=== PATIENT | male | born 1940 | race Caucasian/White ===

== ENCOUNTER 2023-04-13 23:12 | Inpatient (IN) | payer MEDICARE, OTHER, SELFPAY ==
[2023-04-13 23:22] VITALS: BP 207/90; PULSE 63; RESP 16; TEMP 36.4; O2SAT 93; BMI 16.2
[2023-04-13 23:23] VITALS: BP 207/90; O2SAT 94
[2023-04-13 23:30] VITALS: PULSE 63; RESP 17; O2SAT 96
[2023-04-13 23:40] VITALS: PULSE 61; RESP 13; O2SAT 94
[2023-04-13 23:50] VITALS: PULSE 57; RESP 14; O2SAT 95
[2023-04-13 23:57] VITALS: BP 182/79; PULSE 56; RESP 18; O2SAT 97
[2023-04-14] VITALS (19 sets, daily range): BP systolic 143–198; BP diastolic 61–89; PULSE 51–65; RESP 12–24; TEMP 36.6–36.7; O2SAT 90–99; BMI 17.4
--- NOTE | 2023-04-14 00:31 | ECG_ITS ---
[facility] Test Date: 2023-04-13 Pat Name: BETI KRUSE Department: Room: - Gender: Male Take Off Man: : 1940 Requested By: [id number] Order Number: [id number] Reading MD: EVERETTE VALENZUELA Measurements Intervals [place] Rate: 59 P: 90 MN: 148 QRS: 243 QRSD: 86 T: 90 QT: 466 QTc: 466 Interpretive Statements 1100 Sinus rhythm 2420 RSR (QR) in lead V1/V2, consistent with right ventricular conduction delay 2730 Left posterior fascicular block [address] depression 4564 Twave abnormality, possible inferolateral ischemia 7300 Indeterminate axis 9150 abnormal ECG No previous ECG available for comparison Electronically Signed On 04-14-2023 7:02:58 EST by EVERETTE VALENZUELA
--- NOTE | 2023-04-14 00:31 | XR_ITS ---
The [address] [address] Patient Name: BETI KRUSE MRN: [id number] date: 1940 Sex: M Assigned Patient Location: ER Current Patient Location: [place] Accession/Order Number: [id number] Exam Date: 04/14/2023 00:45 Report Date: 04/14/2023 01:12 At the request of: VANGIE MARKER Procedure: XR chest 2V EXAM: XR chest 2V HISTORY: ams COMPARISON: None. TECHNIQUE: 2 views of the chest were obtained. FINDINGS: The cardiac silhouette is normal in size. There are emphysematous changes. Calcified granulomas are seen in the mid left lung. A suspected left nipple shadow is noted. Suspected scarring and bullous changes are noted in the right lung apex. There is no significant pneumothorax or pleural effusion. No acute osseous abnormality is seen. Calcified mediastinal lymph nodes are noted. XR/XR chest 2V IMPRESSION: 1. Emphysematous changes with no acute cardiopulmonary abnormality. Electronically authenticated by: Kirk CERVANTES Date: 04/14/2023 01:12
--- NOTE | 2023-04-14 00:36 | ED_ITS ---
HPI - General Adult General Chief complaint: Headache Stated complaint: WEAKNESS Time Seen by Provider: 04/13/23 23:23 Source: patient and family (daughter) Mode of arrival: Wheelchair Limitations: physical limitation History of Present Illness HPI narrative: This 82-year-old male is brought to the emergency department by his daughter for evaluation of episodes of confusion and hallucinations. The daughter was called by the patient's yesterday stating that the patient was hallucinating and thought that he was seeing 20 people outside of his window getting ready to vote. He was taken to [facility] CT scan, urinalysis, CBC, comprehensive metabolic profile and COVID tests were done. The tests were apparently normal and he was discharged home. The patient's daughter states that while he was in the emergency department he was also hallucinating thinking that he was seeing some strange kind of animals running around on the floor. The patient does not have any known medical history but has not seen any physicians in the past 40 years according to his daughter. He was seen in the emergency department after testing positive for COVID 19 several years ago. The patient has a history of long-standing tobacco use. The patient's daughter states he was smoking at least one pack per day but she does not know how much she is smoking now. He has not had any weight loss according to his daughter but has been increasingly weak and is sleeping in his chair instead of going upstairs to bed. When asked why he is doing that, he replies that he doesnt have to come down the stairs if he hasnt gone up them. He does not have a diagnosis of dementia. The patient denies any chest pain or shortness of breath. He denies any recent falls. He has not been known to have a fever. He has been having intermittent headaches and has a history of glaucoma. He has no focal neurologic symptoms. He denies any nausea or vomiting. He does have a history of colitis and told one of his sons that he has been having some more diarrhea than usual. He denies any abdominal pain at this time. He is awake, alert, oriented to person place and time. He knows his daughter, his date of , his address. Initially upon my examination he was not making sense but after he started talking he was clear and coherent. On the chart from yesterdays ED visit, it was noted that he had a dose of Clonidine and was noted to be hypertensive in the ED and at triage today. The patient's daughter states that he had COVID and it really took a toll on him and he has had some memory issues since that time but nothing like the hallucinations he has been experiencing of late. Related Data Home Medications Medication Instructions Recorded Confirmed ascorbic acid (vitamin C) 500 mg mg PO 04/14/23 capsule zinc sulfate 50 mg zinc (220 mg) 50 mg PO DAILY 04/14/23 04/14/23 tablet Allergies Allergy/AdvReac Type Severity Reaction Status Date / Time No Known Drug Allergies Allergy Verified 04/13/23 23:28 Review of Systems ROS Status of ROS 10 or more systems reviewed and unremarkable except as noted in history and below [facility] Social History Smoking status: Current every day smoker Exam Narrative Exam Narrative: Nurses note and vital signs reviewed and patient is not hypoxic. Blood pressure noted to be elevated at 182/79 General: Thin, non-toxic elderly male, no resp distress, speaking in complete sentences Skin: Warm, dry, no pallor noted. There is no rash noted. Head: Normocephalic, atraumatic Eye: Normal conjunctiva, no drainage, EOMI. PERRL Ears, Nose, Mouth, and Throat: oral mucosa is dry. No oral lesions, no facial droop Cardiovascular: Regular Rate and Rhythm S1S2, no murmurs, rubs or gallops Respiratory: Diffusely diminished breath sounds, no wheezing, rhonchi or rales appreciated Back: non-tender, no CVA tenderness bilaterally to percussion. GI: Normal bowel sounds, no tenderness to palpation, no masses appreciated. No rebound, guarding, or rigidity noted. Musculoskeletal: The patient has no evidence of calf tenderness, no pitting edema, symmetrical pulses noted bilaterally, hypertrophic toe nails with no sign of foot infection Neurological: A&O x4, normal speech, drill press tender strength is intact, negative pronator drift, upper and lower extremity strength and sensation is intact Psychiatric: Cooperative, humerous Constitutional Vital Signs, click to edit/add: Last Vital Signs Temp 97.6 F 04/13/23 23:22 Pulse 54 L 04/14/23 04:36 Resp 15 04/14/23 04:36 BP 173/83 H 04/14/23 04:36 Pulse Ox 95 04/14/23 04:36 O2 Del Method Room Air 04/13/23 23:22 Course Vital Signs Vital signs: Vital Signs Temperature 97.6 F 04/13/23 23:22 Pulse Rate 63 04/13/23 23:22 Respiratory Rate 16 04/13/23 23:22 Blood Pressure 207/90 H 04/13/23 23:22 Pulse Oximetry 93 L 04/13/23 23:22 Oxygen Delivery Method Room Air 04/13/23 23:22 Temperature 97.6 F 04/13/23 23:22 Pulse Rate 54 L 04/14/23 04:36 Respiratory Rate 15 04/14/23 04:36 Blood Pressure 173/83 H 04/14/23 04:36 Pulse Oximetry 95 04/14/23 04:36 Oxygen Delivery Method Room Air 04/13/23 23:22 Medical Decision Making MDM Narrative Medical decision making narrative: 82-year-old male is brought to the emergency department by his daughter for evaluation of altered mental status. The patient has been having episodes of hallucinations. The patient is aware of the hallucinations and states that when he was in the emergency department at [facility] last night there were unusual animals in his room and prior to that thought that he saw about 20 kids outside his bedroom window. The patient does not have any history of any medical issues however he has not seen a doctor or ever been hospitalized. The daughter does state that he did start to have some memory issues after having COVID 19. The patient has a long-standing history of tobacco use. He does not have a family physician. He has not on any chronic medications. At [facility] yesterday he had a CT scan of the brain which was apparently normal., CBC, CMP, UA and COVID 19 testing. He was discharged home and his symptoms continued and he has been increasingly weak. He does have a history of glaucoma. The daughter states at times he is holding his head like he has a headache but he is denying any head pain. He has no photophobia or nuchal rigidity. Upon arrival he was taken to room 6 and evaluated, He was noted to have an elevated blood pressure, He did have some episodes of speech that I could not understand but then was clear and coherent at times. He denies any complaint of pain. His neuro exam was normal.The patient had to use the bathroom and when he tried to get out of bed he was extremely unsteady on his feet and had to be helped back to the bed before he fell. He was medicated with 10 mg IV Labetalol twice for the elevated blood pressure. An EKG done upon arrival shows ST depression but no other acute changes. Routine labs were ordered and are reviewed. He has a normal white count and hemoglobin. He has a normal lactic acid. Troponin is normal. Urinalysis is negative for infection. Blood gas shows a normal pH and a normal PCO2 indicating he is not retaining CO2. CXR shows signs of emphysema but no acute infiltrate. His d-dimer was elevated at 0.88 and CTA of the chest was ordered. CTA of the chest shows diffuse atheromatous plaque of the aorta with paraseptal and ccentral lobular emphysema with large bullae within both lungs moderate scarring within the right upper lung and left lung apex with moderately severe peribronchial thickening consistent with acute or chronic bronchitis with a small mucous within the trachea left mainstem bronchus with mucous plugging of a left lower lobe bronchus. There is no pulmonary embolism or abnormal lymph nodes. There is also diffuse circumferential thickening of the esophageal wall suggestive of esophagitis or sequelae of chronic GE reflux. The patient has been continually monitored in the emergency Department has not had any ectopy or arrhythmias on the monitor. He remains awake, alert, conversive. He does admit that he coughs a lot and has productive phlegm. I will speak to the hospitalist about admitting him for his generalized weakness, uncontrolled hypertension, episodes of altered mental status/confusion/hallucinations and his chronic pulmonary issues. The patient is reluctantly agreeable to hospitalization at this time. He is aware that he has been having episodes of confusion and generalized weakness and wishes to get stronger so he can go fishing again Case discussed with Dr Santiago and he is accepted for admission Medical Records Medical records narrative: The [address] [address] XRay Report Signed Patient: BETI KRUSE MR#: [id number] : 1940 Acct:[id number] Age/Sex: 82 / M ADM Date: 04/13/23 Loc: ER Attending Dr: Ordering Physician: Deborah Camacho Date of Service: 04/14/23 Procedure(s): XR chest 2V Accession Number(s): [id number] cc: Deborah Camacho; Physician,Non-Staff M.D.~ [facility] [place] [id number] Patient Name: BETI KRUSE MRN: [id number] date: 1940 Sex: M Assigned Patient Location: ER Current Patient Location: ER Accession/Order Number: [id number] Exam Date: 04/14/2023 00:45 Report Date: 04/14/2023 01:12 At the request of: DEBORAH MARKER Procedure: XR chest 2V EXAM: XR chest 2V HISTORY: ams COMPARISON: None. TECHNIQUE: 2 views of the chest were obtained. FINDINGS: The cardiac silhouette is normal in size. There are emphysematous changes. Calcified granulomas are seen in the mid left lung. A suspected left nipple shadow is noted. Suspected scarring and bullous changes are noted in the right lung apex. There is no significant pneumothorax or pleural effusion. No acute osseous abnormality is seen. Calcified mediastinal lymph nodes are noted. XR/XR chest 2V IMPRESSION: 1. Emphysematous changes with no acute cardiopulmonary abnormality. Electronically authenticated by: Kirk CERVANTES Date: 04/14/2023 01:12 [place] [address] CT Scan Report Signed Patient: BETI KRUSE MR#: [id number] : 1940 Acct:[id number] Age/Sex: 82 / M ADM Date: 04/13/23 Loc: ER Attending Dr: Ordering Physician: Deborah Camacho Date of Service: 04/14/23 Procedure(s): CT angio chest Accession Number(s): [id number] cc: Physician,Non-Staff M.D.~ The [address] [id number] Patient Name: BETI KRUSE MRN: [id number] date: 1940 Sex: M Assigned Patient Location: ER Current Patient Location: ER Accession/Order Number: [id number] Exam Date: 04/14/2023 03:36 Report Date: 04/14/2023 04:50 At the request of: DEBORAH MARKER Procedure: CT angio chest EXAM: CT angio chest HISTORY: Elevated d-dimer; technologist notes state headache, increasing weakness and hallucinations. COMPARISON: None. TECHNIQUE: Routine CTA chest with intravenous contrast. FINDINGS: There is contrast within the pulmonary arteries. There is no pulmonary embolus. The heart size is within normal limits. There is mild calcified and noncalcified atheromatous plaque along the thoracic aorta and severe calcified and noncalcified plaque along the abdominal aorta. Paraseptal and centrilobular emphysema with large bulla within both lung apices. There is moderate scarring within the right upper lung zone and at the left lung apex. There is moderately severe peribronchial thickening consistent with acute and/or chronic bronchitis. There is a small amount of mucus within the trachea and left mainstem bronchus. There is mucus plugging of a left lower lobe bronchus. There is a reticular nodular interstitial pattern within the left lower lobe suggesting aspiration or a bronchiolitis. Mild atelectasis lingular segment left upper lobe. There is a 0.3 cm noncalcified nodule anterior right mid chest (series 4 image 60). There is a 0.4 cm noncalcified nodule lateral right mid chest (series 4 image 57). There is a 0.3 cm nodule lateral left mid chest which could represent a granuloma (series 4 image 51). There are several small calcified granuloma adjacent to this. There are no pathologically enlarged axillary, mediastinal or hilar lymph nodes. Mild diffuse circumferential thickening of the esophageal wall suggesting an esophagitis or sequelae of chronic gastroesophageal reflux. The thyroid gland is unremarkable. There are calcified granuloma scattered within the spleen. The bony structures are osteopenic. There is mild kyphosis of the thoracic spine. CT/CT angio chest IMPRESSION: There is no pulmonary embolus. Paraseptal and centrilobular emphysema with large bulla within both lung apices. There is moderate scarring within the right upper lung zone and at the left lung apex. There is moderately severe peribronchial thickening consistent with acute and/or chronic bronchitis. There is a small amount of mucus within the trachea and left mainstem bronchus. There is mucus plugging of a left lower lobe bronchus. There is a reticular nodular interstitial pattern within the left lower lobe suggesting aspiration or a bronchiolitis. A CT examination of the chest following appropriate medical treatment is recommended to confirm complete resolution. There are a couple nodules within the chest measuring 0.3 cm on the right and 0.4 cm on the left. There are no pathologically enlarged lymph nodes. Mild diffuse circumferential thickening of the esophageal wall suggesting an esophagitis or sequelae of chronic gastroesophageal reflux. Electronically authenticated by: ANA LUISA CHENG Date: 04/14/2023 04:50 Lab Data Lab results reviewed: Yes I reviewed the patient's lab results Labs: Lab Results 04/14/23 04/14/23 04/14/23 Range/Units 00:00 00:34 00:40 WBC 9.2 (4.0-11.0) 10^3/uL RBC 5.42 (4.70-6.10) 10^6/uL Hgb 16.5 (14.0-18.0) g/dL Hct 49.4 (42.0-54.0) % MCV 91.1 (80.0-94.0) fL MCH 30.4 (25.9-34.0) pg MCHC 33.4 (29.9-35.2) g/dL RDW 13.5 (11.0-15.0) % Plt Count 221 (150-450) 10^3/uL MPV 10.8 (9.5-13.5) fL Neut % (Auto) 73.2 (43.0-75.0) % Lymph % (Auto) 16.2 L (20.5-60.0) % Monroe % (Auto) 7.6 (1.7-12.0) % Eos % (Auto) 1.5 (0.9-7.0) % Baso % (Auto) 0.7 (0.2-2.0) % Neut # (Auto) 6.8 H (1.4-6.5) 10^3/uL Lymph # (Auto) 1.5 (1.2-3.8) 10^3/uL [place] # (Auto) 0.7 (0.3-0.8) 10^3/uL Eos # (Auto) 0.1 (0.0-0.7) 10^3/uL Baso # (Auto) 0.1 (0.0-0.1) 10^3/uL Abs Immat Gran (auto) 0.07 H (0.00-0.03) 10^3/uL Imm/Tot Granulo (auto) 0.8 H (0.0-0.5) % D-Dimer 0.88 H* (<=0.59) mg/L FEU Puncture Site Lr ABG pH 7.366 (7.350-7.450) ABG pCO2 36.3 (35.0-45.0) mmHg ABG pO2 72.2 L (80.0-100.0) mmHg ABG HCO3 20.8 L (22.0-26.0) mmol/L ABG O2 Saturation 94.4 % ABG Base Excess -4.6 L (-2.0-2.0) mmol/L Ron Test Positive (POSITIVE) Sodium 136 (136-145) mmol/L Potassium 4.1 (3.5-5.1) mmol/L Chloride 101 (98-107) mmol/L Carbon Dioxide 23.6 (21.0-32.0) mmol/L Anion Gap 15.5 BUN 36.0 H (7.0-18.0) mg/dL Creatinine 1.21 (0.70-1.30) mg/dL Est GFR ( Amer) >60 (>=60) Est GFR (Non-Af Amer) 58 L (>=60) BUN/Creatinine Ratio 29.8 Glucose 74 (74-106) mg/dL Lactate 1.2 (0.4-2.0) mmol/L Calcium 9.2 (8.5-10.1) mg/dL Total Bilirubin 0.9 (0.2-1.0) mg/dL AST 18 (15-37) U/L ALT 7 L (16-63) U/L Alkaline Phosphatase 94 (46-116) U/L Ammonia 19 (11-32) umol/L Troponin I High Sens 20.7 (4.0-76.1) pg/mL Total Protein 7.0 (6.4-8.2) g/dL Albumin 3.9 (3.4-5.0) g/dL Globulin 3.1 g/dL Albumin/Globulin Ratio 1.3 Urine Color (YELLOW) Urine Clarity (CLEAR) Urine pH (5.0-9.0) Ur Specific [place] (1.005-1.025) Urine Protein (NEG/TRACE) mg/dL Urine Glucose (UA) (NEGATIVE) mg/dL Urine Ketones (NEGATIVE) mg/dL Urine Occult Blood (NEGATIVE) Urine Nitrite (NEGATIVE) Urine Bilirubin (NEGATIVE) Urine Urobilinogen (0.2-1.0) EU/dL Ur Leukocyte Esterase (NEGATIVE) Urine RBC (0-2) #/HPF Urine WBC (NONE SEEN) #/HPF Ur Squamous Epith Cells (NONE/RARE) #/LPF Urine Crystals (None Seen) #/HPF Urine Bacteria (NONE SEEN) #/HPF Urine Casts (NONE SEEN) #/LPF Urine Mucus (NONE SEEN) Ur Culture Indicated? 04/14/23 Range/Units 02:15 WBC (4.0-11.0) 10^3/uL RBC (4.70-6.10) 10^6/uL Hgb (14.0-18.0) g/dL Hct (42.0-54.0) % MCV (80.0-94.0) fL MCH (25.9-34.0) pg MCHC (29.9-35.2) g/dL RDW (11.0-15.0) % Plt Count (150-450) 10^3/uL MPV (9.5-13.5) fL Neut % (Auto) (43.0-75.0) % Lymph % (Auto) (20.5-60.0) % [place] % (Auto) (1.7-12.0) % Eos % (Auto) (0.9-7.0) % Baso % (Auto) (0.2-2.0) % Neut # (Auto) (1.4-6.5) 10^3/uL Lymph # (Auto) (1.2-3.8) 10^3/uL [place] # (Auto) (0.3-0.8) 10^3/uL Eos # (Auto) (0.0-0.7) 10^3/uL Baso # (Auto) (0.0-0.1) 10^3/uL Abs Immat Gran (auto) (0.00-0.03) 10^3/uL Imm/Tot Granulo (auto) (0.0-0.5) % D-Dimer (<=0.59) mg/L FEU Puncture Site ABG pH (7.350-7.450) ABG pCO2 (35.0-45.0) mmHg ABG pO2 (80.0-100.0) mmHg ABG HCO3 (22.0-26.0) mmol/L ABG O2 Saturation % ABG Base Excess (-2.0-2.0) mmol/L Ron Test (POSITIVE) Sodium (136-145) mmol/L Potassium (3.5-5.1) mmol/L Chloride (98-107) mmol/L Carbon Dioxide (21.0-32.0) mmol/L Anion Gap BUN (7.0-18.0) mg/dL Creatinine (0.70-1.30) mg/dL Est GFR ( Amer) (>=60) Est GFR (Non-Af Amer) (>=60) BUN/Creatinine Ratio Glucose (74-106) mg/dL Lactate (0.4-2.0) mmol/L Calcium (8.5-10.1) mg/dL Total Bilirubin (0.2-1.0) mg/dL AST (15-37) U/L ALT (16-63) U/L Alkaline Phosphatase (46-116) U/L Ammonia (11-32) umol/L Troponin I High Sens (4.0-76.1) pg/mL Total Protein (6.4-8.2) g/dL Albumin (3.4-5.0) g/dL Globulin g/dL Albumin/Globulin Ratio Urine Color Yellow (YELLOW) Urine Clarity Clear (CLEAR) Urine pH 5.5 (5.0-9.0) Ur Specific [place] >=1.030 A (1.005-1.025) Urine Protein Trace (NEG/TRACE) mg/dL Urine Glucose (UA) Negative (NEGATIVE) mg/dL Urine Ketones >=80 A (NEGATIVE) mg/dL Urine Occult Blood Negative (NEGATIVE) Urine Nitrite Negative (NEGATIVE) Urine Bilirubin Negative (NEGATIVE) Urine Urobilinogen 0.2 (0.2-1.0) EU/dL Ur Leukocyte Esterase Negative (NEGATIVE) Urine RBC 0-2 (0-2) #/HPF Urine WBC None seen (NONE SEEN) #/HPF Ur Squamous Epith Cells Rare (NONE/RARE) #/LPF Urine Crystals None seen (None Seen) #/HPF Urine Bacteria Trace A (NONE SEEN) #/HPF Urine Casts None seen (NONE SEEN) #/LPF Urine Mucus None seen (NONE SEEN) Ur Culture Indicated? No ECG Data Attestation: I personally reviewed and interpreted this ECG as follows: (Sinus rhythm at 59 beats for minute, ST depressions in leads 23 aVF 3 before V5 V6, left anterior hemiblock, indeterminate axis, no acute ST segment elevation) Discharge Plan Discharge Chief Complaint: Headache Clinical Impression: Hypertension, uncontrolled, Generalized weakness, Hallucinations, visual, Altered mental status, COPD (chronic obstructive pulmonary disease) Patient Disposition: Admitted as Observation Time of Disposition Decision: 06:15
[2023-04-14 00:42] LABS: Basophils Absolute Auto 0.1 10^3/uL (0.0-0.1); Basophils Percent Auto 0.7 % (0.2-2.0); Eosinophils Absolute Auto 0.1 10^3/uL (0.0-0.7); Eosinophils Percent Auto 1.5 % (0.9-7.0); Hematocrit 49.4 % (42.0-54.0); Hemoglobin 16.5 g/dL (14.0-18.0); Immature Granulocytes Abs Auto 0.07 10^3/uL (0.00-0.03); Immature Granulocytes Pct Auto 0.8 % (0.0-0.5); Lymphocytes Absolute Auto 1.5 10^3/uL (1.2-3.8); Lymphocytes Percent Auto 16.2 % (20.5-60.0); Mean Corpuscular HGB Conc 33.4 g/dL (29.9-35.2); Mean Corpuscular Hemoglobin 30.4 pg (25.9-34.0); Mean Corpuscular Volume 91.1 fL (80.0-94.0); Mean Platelet Volume 10.8 fL (9.5-13.5); Monocytes Absolute Auto 0.7 10^3/uL (0.3-0.8); Monocytes Percent Auto 7.6 % (1.7-12.0); Neutrophils Absolute Auto 6.8 10^3/uL (1.4-6.5); Neutrophils Percent Auto 73.2 % (43.0-75.0); Platelet Count 221 10^3/uL (150-450); Red Blood Count 5.42 10^6/uL (4.70-6.10); Red Cell Distribution Width 13.5 % (11.0-15.0); White Blood Count 9.2 10^3/uL (4.0-11.0)
[2023-04-14 00:43] LABS: ABG PCO2 36.3 mmHg (35.0-45.0); Base Excess ABG -4.6 mmol/L (-2.0-2.0); HCO3 ABG 20.8 mmol/L (22.0-26.0); PO2 ABG 72.2 mmHg (80.0-100.0); pH ABG 7.366 (7.350-7.450)
[2023-04-14 00:44] LABS: Allen Test POSITIVE (POSITIVE); O2 Mode ROOM AIR; Oxygen Saturation ABG 94.4 %; Puncture Site LR
[2023-04-14 01:01] LABS: Lactate/Lactic Acid 1.2 mmol/L (0.4-2.0)
[2023-04-14 01:07] LABS: Ammonia 19 umol/L (11-32)
[2023-04-14 01:45] LABS: Alanine Aminotransferase 7 U/L (16-63); Albumin Globulin Ratio 1.3; Albumin Level 3.9 g/dL (3.4-5.0); Alkaline Phosphatase 94 U/L (46-116); Anion Gap 15.5; Aspartate Amino Transferase 18 U/L (15-37); BUN Creatinine Ratio 29.8; Bilirubin Total 0.9 mg/dL (0.2-1.0); Calcium 9.2 mg/dL (8.5-10.1); Carbon Dioxide 23.6 mmol/L (21.0-32.0); Chloride 101 mmol/L (98-107); Estimated GFR (African America >60 (>=60); Estimated GFR (Non-African Ame 58 (>=60); Globulin 3.1 g/dL; Glucose 74 mg/dL (74-106); Potassium 4.1 mmol/L (3.5-5.1); Sodium 136 mmol/L (136-145)
[2023-04-14] MEDS: LABETALOL HCL 20 MG/4 ML SYRINGE 10 MG IVP ×2 (02:00→03:06)
[2023-04-14 02:25] LABS: Bilirubin Urine NEGATIVE (NEGATIVE); Blood Urine NEGATIVE (NEGATIVE); Clarity Urine CLEAR (CLEAR); Color Urine YELLOW (YELLOW); Glucose Urine UA NEGATIVE (NEGATIVE); Ketones Urine >=80 mg/dL (NEGATIVE); Leukocyte Esterase Urine NEGATIVE (NEGATIVE); Nitrite Urine NEGATIVE (NEGATIVE); Protein Urine TRACE mg/dL (NEG/TRACE); Specific Gravity Urine >=1.030 (1.005-1.025); Urobilinogen Urine 0.2 EU/dL (0.2-1.0); pH Urine 5.5 (5.0-9.0)
[2023-04-14 02:27] LABS: Bacteria Urine TRACE #/HPF (NONE SEEN); Cast Seen? NONE SEEN #/LPF (NONE SEEN); Crystals Seen? None Seen #/HPF (None Seen); Mucus Urine NONE SEEN (NONE SEEN); RBC Urine 0-2 #/HPF (0-2); Squamous Epithelial Cell Urine RARE #/LPF (NONE/RARE); Urine Culture Indicated NO; WBC Urine NONE SEEN #/HPF (NONE SEEN)
[2023-04-14 02:46] LABS: Troponin I High Sensitivity 20.7 pg/mL (4.0-76.1)
[2023-04-14] MEDS: 0.9 % SODIUM CHLORIDE 1,000 ML 1000 ML IV (02:50)
[2023-04-14 02:51] LABS: D Dimer 0.88 mg/L FEU (<=0.59)
--- NOTE | 2023-04-14 02:52 | CT_ITS ---
The [address] [address] Patient Name: BETI KRUSE MRN: [id number] date: 1940 Sex: M Assigned Patient Location: ER Current Patient Location: [place] Accession/Order Number: [id number] Exam Date: 04/14/2023 03:36 Report Date: 04/14/2023 04:50 At the request of: VANGIE MARKER Procedure: CT angio chest EXAM: CT angio chest HISTORY: Elevated d-dimer; technologist notes state headache, increasing weakness and hallucinations. COMPARISON: None. TECHNIQUE: Routine CTA chest with intravenous contrast. FINDINGS: There is contrast within the pulmonary arteries. There is no pulmonary embolus. The heart size is within normal limits. There is mild calcified and noncalcified atheromatous plaque along the thoracic aorta and severe calcified and noncalcified plaque along the abdominal aorta. Paraseptal and centrilobular emphysema with large bulla within both lung apices. There is moderate scarring within the right upper lung zone and at the left lung apex. There is moderately severe peribronchial thickening consistent with acute and/or chronic bronchitis. There is a small amount of mucus within the trachea and left mainstem bronchus. There is mucus plugging of a left lower lobe bronchus. There is a reticular nodular interstitial pattern within the left lower lobe suggesting aspiration or a bronchiolitis. Mild atelectasis lingular segment left upper lobe. There is a 0.3 cm noncalcified nodule anterior right mid chest (series 4 image 60). There is a 0.4 cm noncalcified nodule lateral right mid chest (series 4 image 57). There is a 0.3 cm nodule lateral left mid chest which could represent a granuloma (series 4 image 51). There are several small calcified granuloma adjacent to this. There are no pathologically enlarged axillary, mediastinal or hilar lymph nodes. Mild diffuse circumferential thickening of the esophageal wall suggesting an esophagitis or sequelae of chronic gastroesophageal reflux. The thyroid gland is unremarkable. There are calcified granuloma scattered within the spleen. The bony structures are osteopenic. There is mild kyphosis of the thoracic spine. CT/CT angio chest IMPRESSION: There is no pulmonary embolus. Paraseptal and centrilobular emphysema with large bulla within both lung apices. There is moderate scarring within the right upper lung zone and at the left lung apex. There is moderately severe peribronchial thickening consistent with acute and/or chronic bronchitis. There is a small amount of mucus within the trachea and left mainstem bronchus. There is mucus plugging of a left lower lobe bronchus. There is a reticular nodular interstitial pattern within the left lower lobe suggesting aspiration or a bronchiolitis. A CT examination of the chest following appropriate medical treatment is recommended to confirm complete resolution. There are a couple nodules within the chest measuring 0.3 cm on the right and 0.4 cm on the left. There are no pathologically enlarged lymph nodes. Mild diffuse circumferential thickening of the esophageal wall suggesting an esophagitis or sequelae of chronic gastroesophageal reflux. Electronically authenticated by: ANA LUISA CHENG Date: 04/14/2023 04:50
--- NOTE | 2023-04-14 06:11 | PC.NURSE ---
Pt resting comforrtably. MD consulting hospitalists regarding admission.
[2023-04-14] MEDS: LACTATED RINGER'S SOLUTION 1,000 ML 100 ML IV ×2 (07:54→21:46)
--- NOTE | 2023-04-14 09:12 | CM.NOTE ---
PT and OT to evaluate pt today, Case Management will follow for any home needs.
[2023-04-14] MEDS: CEFTRIAXONE 1,000 MG in 0.9 % SODIUM CHLORIDE 50 ML 100 MG IV (09:34)
[2023-04-14] MEDS: ENOXAPARIN SODIUM 40 MG/0.4 ML SYRINGE SUBQ (09:38)
[2023-04-14] MEDS: IPRATROPIUM/ALBUTEROL SULFATE 3 ML AMPUL.NEB IH ×3 (10:34→23:49)
--- NOTE | 2023-04-14 11:10 | CM.NOTE ---
Medicare Outpatient Observation Notice discussed with pt, pt verbalizes understanding but refuses to sign. Pt states he has the [employer] halfway benefits and insurance and was told to not sign anything regarding Medicare or insurance.
--- NOTE | 2023-04-14 11:34 | CM.NOTE ---
Spoke with pt's daughter on telephone for pt's baseline. Pt does live at home with and is independent. No home services. Pt's confusion has just started in the las couple weeks, pt was seeing Animals and cars in home that were not really present. Pt does not have a family physician and has not seen a doctor for years. Pt does not take any medications but uses eye drops. This is his first time being hospitalized. Daughter does request attempting to get pt to agree to HH at discharge and she will be in to talk with him. Pt does refuse at this time any home services. Pt states he does not like people in his home.
--- NOTE | 2023-04-14 12:46 | CM.NOTE ---
Discussed with son and pt regarding HH or nurse to come in for home evaluation. Pt not in agreement at this time. Son asking questions of concern regarding new onset of confusion. Spoke with Dr. Santiago and he will go in and talk with pt's son. Let son know that Dr. Santiago would be in shortly to talk with him to discuss plan of care.
--- NOTE | 2023-04-14 14:12 | CM.NOTE ---
Spoke with son again regarding plan of care with pt. Son states he was able to speak with Dr. Santiago and pt is getting MRI. Explained to son if anything would change with pt's thoughts regarding HH to please reach out to Case Management.
--- NOTE | 2023-04-14 14:33 | MR_ITS ---
The [address] [address] Patient Name: BETI KRUSE MRN: [id number] date: 1940 Sex: M Assigned Patient Location: [place] Current Patient Location: [place] Accession/Order Number: [id number] Exam Date: 04/14/2023 15:00 Report Date: 04/14/2023 16:04 At the request of: SHAIKH JULIANNE Procedure: MR head/brain wo con EXAM: MRI of the brain without IV contrast. REASON FOR EXAM: Confusion/Change in mental status COMPARISON: CT scan from earlier today FINDINGS: Patient motion artifact degrades image quality and reduces sensitivity of the exam. No intracranial masses. No abnormal restricted diffusion or evidence of evolving infarct. No evidence of intracranial hemorrhage. No hydrocephalus. Mild generalized cerebral and cerebellar volume loss. Mild small vessel gliosis. Paranasal sinuses and mastoid air cells are clear. Remainder unremarkable. MR/MR head/brain wo con IMPRESSION: No acute intracranial abnormalities within the limitations of the motion artifact. Electronically authenticated by: TANYA ESPINOZA Date: 04/14/2023 16:04
[2023-04-14] MEDS: HYDROCHLOROTHIAZIDE 25 MG TABLET PO (15:10)
[2023-04-14] MEDS: ACETAMINOPHEN 325 MG TABLET 650 MG PO (15:12)
[2023-04-14] MEDS: LORAZEPAM 2 MG/ML 1 ML VIAL IV (15:12)
--- NOTE | 2023-04-14 18:47 | PM.HP ---
H&P: HPI History of Present Illness Chief complaint: Confusion/change in mental status Narrative: 82 y o male with no known medical problems, lives with his and at baseline, independent in his ADLs, drives and does not use any assistive device when walking was in his usual state of health when about a week or so, he started to intermittently complaint of headache. Around the same time, he was also noted to have productive sputum, HUERTA and generalized weakness. Denies fever, chills, nausea, vomiting, abdominal pain, urinary symptoms. 2-3 days, family noted that patient had fluctuating confusion with periods of normal mentation alternating with extreme anxiety/agitation and visual hallucinations. No prior hx of same. He had ED visit and w/u at OSH that was unremarkable and he was discharged home for outpatient f/u. His symptoms worsened since hospital discharge and he was brought over to ED by his daughter. He was noted to have accelerated HTN with SBP in 200 that responded well to IV medications. CTH - no sig intracranial pathology. His w/u is unremarkable with no acute metabolic/electrolyte abnormality noted except for possible aspiration PNA which given his resp symptoms seemed logical and he was started on IV rocephin along with inhaled bronchodilators for it. He reports feeling better overall compared to when he arrived and that he feels like he is breathing better. However, he still seems confused and intermittently was anxious, agitated and then on occasion reported children playing in a car in a hospital bed. His gait was noted to be unsteady. Other than that - no localizing neurological signs or symptoms noted on interview or exam. There is no prior hx of dementia but daughter mentioned that he has been forgetful lately but nothing out of the ordinary or bothersome was noted in his memory and behavior prior to this acute change. Review of Systems ROS Status of ROS 10 or more systems reviewed and unremarkable except as noted in history and below [facility] Medical History Colitis ?K52.9 - Noninfective gastroenteritis and colitis, unspecified (ICD-10) Glaucoma ?H40.9 - Unspecified glaucoma (ICD-10) Family History Grandfather Family history of CHF (congestive heart failure) Family history of hypertension Family history of myocardial infarction Brother Family history of diabetes mellitus Mother Family history of hypertension Father Family history of myocardial infarction Social History Within the past year, how often did you have a drink containing alcohol: never Within the past year, how often did you have six or more drinks on one occasion: never Score interpretation: A score less than 4 is consistent with normal alcohol consumption. Smoking status: Current every day smoker Highest level of school completed/degree received: high school graduate Are you now , , , , never or living with a partner: In a typical week, how many times do you talk on the telephone with family, friends, or neighbors: twice per week How often do you get together with friends or relatives: twice per week Little interest or pleasure in doing things: not at all Feeling down, depressed, or hopeless: not at all Feel stressed/tense/nervous/anxious/difficulty sleeping: not at all Do you think of yourself as: straight/heterosexual Gender Identity: male Meds Home Medications and Allergies Home Medications Medication Instructions Recorded Confirmed Type ascorbic acid (vitamin C) 500 mg 500 mg PO QDAY 04/14/23 04/14/23 History capsule zinc sulfate 50 mg zinc (220 mg) 50 mg PO DAILY 04/14/23 04/14/23 History tablet Allergies Allergy/AdvReac Type Severity Reaction Status Date / Time No Known Drug Allergies Allergy Verified 04/13/23 23:28 Exam Constitutional Vital Signs, click to edit/add: Last Vital Signs Temp 98 F 04/14/23 15:12 Pulse 51 L 04/14/23 16:32 Resp 24 04/14/23 16:32 BP 173/67 H 04/14/23 15:10 Pulse Ox 95 04/14/23 16:32 O2 Del Method Room Air 04/14/23 16:32 Documenting provider has reviewed patient's vital signs: yes Common normals: no apparent distress and oriented x3 General appearance: cooperative HENMT Common normals: normocephalic and head/scalp atraumatic Head and scalp: normocephalic and atraumatic Eye Common normals: conjunctivae normal and no scleral icterus Conjunctiva: conjunctiva(e) normal Respiratory Common normals: normal respiratory effort Effort & inspection: able to speak in complete sentences Auscultation: rhonchi Cardio Common normals: regular rate, S1 normal heart sound and S2 normal heart sound Rate: regular rate Heart sounds: S1 normal and S2 normal GI Common normals: Normal to inspection, nondistended, normoactive bowel sounds present, soft to palpation, non-tender and no hepatosplenomegaly Palpation: soft and no hepatosplenomegaly Extremity General: edema (dilated veins, LE edema localized around ankles. ) Neuro Common normals: oriented x3, moves all extremities and no focal motor deficits Speech: speech normal Gait (neuro): normal gait Psych Common normals: speech normal Appearance: grossly normal Attitude: other (anxious) Speech: normal speech Mood and affect: anxious Thought process: confused Thought content: hallucination(s) Insight: limited Judgement: limited Results Labs Labs: Short CBC 04/14/23 Range/Units 00:34 WBC 9.2 (4.0-11.0) 10^3/uL Hgb 16.5 (14.0-18.0) g/dL Hct 49.4 (42.0-54.0) % Plt Count 221 (150-450) 10^3/uL BMP 04/14/23 00:34 Sodium 136 Potassium 4.1 Chloride 101 Carbon Dioxide 23.6 BUN 36.0 H Creatinine 1.21 Glucose 74 Calcium 9.2 Liver Function 04/14/23 Range/Units 00:34 Total Bilirubin 0.9 (0.2-1.0) mg/dL AST 18 (15-37) U/L ALT 7 L (16-63) U/L Alkaline Phosphatase 94 (46-116) U/L Albumin 3.9 (3.4-5.0) g/dL Urine 04/14/23 Range/Units 02:15 Urine Color Yellow (YELLOW) Urine Clarity Clear (CLEAR) Urine pH 5.5 (5.0-9.0) Ur Specific [place] >=1.030 A (1.005-1.025) Urine Protein Trace (NEG/TRACE) mg/dL Urine Glucose (UA) Negative (NEGATIVE) mg/dL ABG ABG results: 04/14/23 00:40 ABG pH 7.366 ABG pCO2 36.3 ABG pO2 72.2 L ABG HCO3 20.8 L ABG O2 Saturation 94.4 ABG Base Excess -4.6 L Assessment and Plan Assessment and Plan (1) Hypertensive emergency without congestive heart failure: Assessment and Plan: HTN emergency - presented with poorly controlled HTN. SBP > 200, DBP > 100. Associated with headache and change in mental status. Responded well to IV meds but creeping up slowly during the day. IV hydralazine as needed Start on Losartan/HCTZ. Monitor BP. CTH - no acute patholgoy. Due to persistent symptoms of confusion/delirium/altered mental status - order an MRI to r/o mass/space occupying lesion/CVA. Normal MRI. No acute pathology. (2) Delirium due to medical condition without behavioral disturbance: Assessment and Plan: Altered mental status, with fluctuating sensorium. Confused, anxious with hallucinations and then sometimes, he is at his baseline mental status. No acute pathology noted on MRI. No localizing signs or symptoms. No neck regidity, neck pain. Suspect this could be due to PNA/accelerated HTN. Monitor closely. Added xanax and seroquel to help with anxiety/agitation. (3) Altered mental status: Assessment and Plan: Altered mental status, with fluctuating sensorium. Confused, anxious with hallucinations and then sometimes, he is at his baseline mental status. No acute pathology noted on MRI. No localizing signs or symptoms. No neck regidity, neck pain. Suspect this could be due to PNA/accelerated HTN. Monitor closely. Added ativan and seroquel to help with anxiety/agitation. Qualifiers: Altered mental status type: delirium Qualified Code(s): R41.0 - Disorientation, unspecified (4) Bacterial pneumonia: Assessment and Plan: Cough, with SOB, abnormal lung auscultation along with possible infilitrate on CTA. Treating for CAP. On IV rocephin. Suspect underlying COPD. Will need outpatient PFTs. Duonebs as needed, guaifenesin for mucus and cough. (5) Generalized weakness: Assessment and Plan: Improved overnight. PT/OT eval. Ambulating w.o any help but unsteady gait. (6) Smoker: Assessment and Plan: Nicotine patch ordered. Discussed smoking cessation briefly. Plan Patient changed to inpatient as anticipate to stay for 3 days for his current illness. Needs close monitoring of neurological status and if no improvement, might require Neurology consult.
[2023-04-14] MEDS: NICOTINE 21 MG PATCH TD (21:46)
[2023-04-14] MEDS: QUETIAPINE FUMARATE 25 MG TABLET PO (21:47)
[2023-04-14] MEDS: LOSARTAN POTASSIUM 50 MG TABLET 100 MG PO (21:47)
[2023-04-15] VITALS (12 sets, daily range): BP systolic 145–177; BP diastolic 62–71; PULSE 52–96; RESP 12–20; TEMP 36.6–36.9; O2SAT 93–99
[2023-04-15] MEDS: IPRATROPIUM/ALBUTEROL SULFATE 3 ML AMPUL.NEB IH ×4 (04:27→22:34)
[2023-04-15 05:56] LABS: Basophils Percent Auto 0.4 % (0.2-2.0); Eosinophils Absolute Auto 0.1 10^3/uL (0.0-0.7); Hematocrit 35.9 % (42.0-54.0); Hemoglobin 11.9 g/dL (14.0-18.0); Immature Granulocytes Abs Auto 0.04 10^3/uL (0.00-0.03); Immature Granulocytes Pct Auto 0.4 % (0.0-0.5); Lymphocytes Absolute Auto 1.1 10^3/uL (1.2-3.8); Lymphocytes Percent Auto 11.9 % (20.5-60.0); Mean Corpuscular HGB Conc 33.1 g/dL (29.9-35.2); Mean Corpuscular Hemoglobin 29.7 pg (25.9-34.0); Mean Corpuscular Volume 89.5 fL (80.0-94.0); Mean Platelet Volume 9.8 fL (9.5-13.5); Monocytes Absolute Auto 0.9 10^3/uL (0.3-0.8); Monocytes Percent Auto 10.3 % (1.7-12.0); Neutrophils Absolute Auto 6.8 10^3/uL (1.4-6.5); Platelet Count 187 10^3/uL (150-450); Red Blood Count 4.01 10^6/uL (4.70-6.10); Red Cell Distribution Width 13.5 % (11.0-15.0); White Blood Count 8.9 10^3/uL (4.0-11.0)
[2023-04-15 06:16] LABS: Alanine Aminotransferase <6 U/L (16-63); Albumin Globulin Ratio 1.1; Albumin Level 2.6 g/dL (3.4-5.0); Alkaline Phosphatase 61 U/L (46-116); Anion Gap 9.6; Aspartate Amino Transferase 16 U/L (15-37); Bilirubin Total 0.4 mg/dL (0.2-1.0); Calcium 8.3 mg/dL (8.5-10.1); Carbon Dioxide 25.8 mmol/L (21.0-32.0); Chloride 106 mmol/L (98-107); Estimated GFR (African America >60 (>=60); Estimated GFR (Non-African Ame 55 (>=60); Globulin 2.3 g/dL; Glucose 99 mg/dL (74-106); Potassium 3.4 mmol/L (3.5-5.1); Sodium 138 mmol/L (136-145); Total Protein 4.9 g/dL (6.4-8.2)
[2023-04-15] MEDS: LACTATED RINGER'S SOLUTION 1,000 ML 100 ML IV ×2 (07:29→17:20)
[2023-04-15] MEDS: CEFTRIAXONE 1,000 MG in 0.9 % SODIUM CHLORIDE 50 ML 100 MG IV (08:39)
[2023-04-15] MEDS: ENOXAPARIN SODIUM 40 MG/0.4 ML SYRINGE SUBQ (08:39)
[2023-04-15] MEDS: DOCUSATE SODIUM 100 MG CAPSULE PO (08:40)
[2023-04-15] MEDS: POTASSIUM CHLORIDE 10 MEQ ER TABLET 40 MEQ PO (08:40)
[2023-04-15] MEDS: LOSARTAN POTASSIUM 50 MG TABLET 100 MG PO (08:40)
[2023-04-15] MEDS: HYDROCHLOROTHIAZIDE 25 MG TABLET PO (08:40)
[2023-04-15] MEDS: ACETAMINOPHEN 325 MG TABLET 650 MG PO (09:45)
--- NOTE | 2023-04-15 10:19 | CM.NOTE ---
Pt was changed to inpatient. Pt refuses to sign IMM, pt states I will not sign anything from Medicare. I am strictly [employer], attempted to educate pt and son. Continue to refuse to sign notice. Pt refused yesterday also to sign KIL[facility]ICK form for same reason.
--- NOTE | 2023-04-15 11:12 | PT.DAILY ---
Physical Therapy Daily Note PT Daily Note/Assess Start: 04/15/23 11:11 Freq: Status: Active Protocol: Document 04/15/23 11:11 JOSHUA (Rec: 04/15/23 11:12 JOSHUA [id number]) Visit Not Completed Visit Not Completed Visit Not Completed Due to: Other Other Reason Visit Not Completed Pt sleeping at this time. Family present and reports he just fell asleep and she wishes to let him rest. Will follow up if time allows this afternoon. Physical Therapy Daily Note/Assessment Time In/Time Out Time In 10:55 Time Out 10:55 GG. Functional Abilities and Goals-Complete for Swing Bed Patients Only [id number]. Self-Care [id number]. Mobility
--- NOTE | 2023-04-15 11:53 | P.IMPN_ITS ---
Progress Note: A&P Assessment and Plan (1) Hypertensive emergency without congestive heart failure: Assessment and Plan: Started on PO Losartan/HCTZ. Hydralazine IV as needed. Monitor. (2) Delirium due to medical condition without behavioral disturbance: Assessment and Plan: Unclear etiology. MRI - no acute pathology. Possibly due to PNA but typically would have noted improvement by now. Neurology consult pending Ativan as needed for anxiety. Gave seroquel last night and patient slept well last night as a result. (3) Altered mental status: Assessment and Plan: Unclear etiology. Check Ammonia levels, UDS. Neurology consult pending Qualifiers: Altered mental status type: delirium Qualified Code(s): R41.0 - Disorientation, unspecified (4) Bacterial pneumonia: Assessment and Plan: Doing well. Normal lung exam today/ C/w rocephin (5) Generalized weakness: Assessment and Plan: PT/OT eval. (6) Smoker: Assessment and Plan: Discussed smoking cessation. Nicotine patches while in the hospital Plan Persistent confusion, unclear etiology. Neurology consult placed. Continue to monitor. Internal Medicine - PN: Subj Subjective Interval history: Seen and examined. Doing well. No overnight events. Still confused intermittently. W./u fairly unremarkable Exam Constitutional Vital Signs, click to edit/add: Last Vital Signs Temp 97.8 F 04/15/23 04:21 Pulse 56 L 04/15/23 04:38 Resp 18 04/15/23 04:38 BP 176/67 H 04/15/23 08:40 Pulse Ox 95 04/15/23 10:33 O2 Del Method Room Air 04/15/23 10:33 Documenting provider has reviewed patient's vital signs: yes Common normals: no apparent distress and oriented x3 General appearance: cooperative HENMT Common normals: normocephalic and head/scalp atraumatic Head and scalp: normocephalic and atraumatic Eye Common normals: conjunctivae normal and no scleral icterus Conjunctiva: conjunctiva(e) normal Respiratory Common normals: normal respiratory effort, no use of accessory muscles and clear to auscultation bilaterally Effort & inspection: able to speak in complete sentences Cardio Common normals: regular rate, S1 normal heart sound and S2 normal heart sound Rate: regular rate Heart sounds: S1 normal and S2 normal GI Common normals: Normal to inspection, nondistended, normoactive bowel sounds present, soft to palpation, non-tender and no hepatosplenomegaly Palpation: soft and no hepatosplenomegaly Extremity General: edema (dilated veins, LE edema localized around ankles. ) Neuro Common normals: oriented x3, moves all extremities and no focal motor deficits Speech: speech normal Gait (neuro): normal gait Psych Common normals: speech normal Appearance: grossly normal Speech: normal speech Thought process: confused Thought content: hallucination(s) Insight: limited Judgement: limited Internal Medicine - PN: Obj Da Labs Labs: Laboratory Results - last 24 hr 04/15/23 04:59 WBC 8.9 RBC 4.01 L Hgb 11.9 L Hct 35.9 L MCV 89.5 MCH 29.7 MCHC 33.1 RDW 13.5 Plt Count 187 MPV 9.8 Neut % (Auto) 76.0 H Lymph % (Auto) 11.9 L [place] % (Auto) 10.3 Eos % (Auto) 1.0 Baso % (Auto) 0.4 Neut # (Auto) 6.8 H Lymph # (Auto) 1.1 L [place] # (Auto) 0.9 H Eos # (Auto) 0.1 Baso # (Auto) 0.0 Abs Immat Gran (auto) 0.04 H Imm/Tot Granulo (auto) 0.4 Sodium 138 Potassium 3.4 L Chloride 106 Carbon Dioxide 25.8 Anion Gap 9.6 BUN 24.0 H Creatinine 1.26 Est GFR ( Amer) >60 Est GFR (Non-Af Amer) 55 L BUN/Creatinine Ratio 19.0 Glucose 99 Calcium 8.3 L Total Bilirubin 0.4 AST 16 ALT <6 L Alkaline Phosphatase 61 Total Protein 4.9 L Albumin 2.6 L Globulin 2.3 Albumin/Globulin Ratio 1.1
--- NOTE | 2023-04-15 11:59 | CM.NOTE ---
Rounded with Dr. Santiago this AM. Daughter is at bedside and voices concern that patient is not moving around near as well as yesterday. Will re-order PT and OT eval and patient's RN is aware. Continue to follow for potential discharge plan.
--- NOTE | 2023-04-15 15:22 | CM.NOTE ---
Spoke with patient and Daughter Berenice who said she is a registered nurse about patient needing correction for rehab upon discharge. Patient and daughter are both in agreement with this and their choices are [facility] and [facility] choice. Rf Technician Sheila will be making those referrals. Attempting to determine if the patient has traditional or managed medicare at this time.
--- NOTE | 2023-04-15 15:24 | CM.NOTE ---
Discussed with pt and daughter regarding PT evaluation and feel pt would benefit from skilled therapy. Both are in agreement and would like to try [facility]. [facility], beds are available and faxed clinical for new referral.
--- NOTE | 2023-04-15 16:04 | CM.NOTE ---
Spoke with [facility] [place], referral received.
[2023-04-15] MEDS: NICOTINE 21 MG PATCH TD (22:14)
[2023-04-15] MEDS: QUETIAPINE FUMARATE 25 MG TABLET PO (22:15)
[2023-04-15] MEDS: HYDRALAZINE HCL 20 MG/ML VIAL 10 MG IVP (22:42)
[2023-04-16] MEDS: LACTATED RINGER'S SOLUTION 1,000 ML 100 ML IV (03:15)
[2023-04-16 04:32] VITALS: PULSE 79; RESP 18; O2SAT 95
[2023-04-16] MEDS: IPRATROPIUM/ALBUTEROL SULFATE 3 ML AMPUL.NEB IH ×2 (04:32→12:02)
[2023-04-16 04:44] VITALS: PULSE 84; RESP 18; O2SAT 96
[2023-04-16 05:12] LABS: Basophils Percent Auto 0.4 % (0.2-2.0); Eosinophils Absolute Auto 0.1 10^3/uL (0.0-0.7); Eosinophils Percent Auto 0.8 % (0.9-7.0); Hematocrit 36.5 % (42.0-54.0); Hemoglobin 12.4 g/dL (14.0-18.0); Immature Granulocytes Abs Auto 0.06 10^3/uL (0.00-0.03); Immature Granulocytes Pct Auto 0.6 % (0.0-0.5); Lymphocytes Absolute Auto 0.9 10^3/uL (1.2-3.8); Lymphocytes Percent Auto 8.1 % (20.5-60.0); Mean Corpuscular Hemoglobin 30.8 pg (25.9-34.0); Mean Corpuscular Volume 90.6 fL (80.0-94.0); Mean Platelet Volume 9.9 fL (9.5-13.5); Monocytes Absolute Auto 1.1 10^3/uL (0.3-0.8); Monocytes Percent Auto 10.2 % (1.7-12.0); Neutrophils Absolute Auto 8.4 10^3/uL (1.4-6.5); Neutrophils Percent Auto 79.9 % (43.0-75.0); Platelet Count 181 10^3/uL (150-450); Red Blood Count 4.03 10^6/uL (4.70-6.10); White Blood Count 10.5 10^3/uL (4.0-11.0)
[2023-04-16 05:15] VITALS: BP 161/73; PULSE 87; RESP 14; TEMP 36.8; O2SAT 96
[2023-04-16 05:33] LABS: Alanine Aminotransferase 15 U/L (16-63); Albumin Level 2.5 g/dL (3.4-5.0); Alkaline Phosphatase 66 U/L (46-116); Anion Gap 7.1; Aspartate Amino Transferase 13 U/L (15-37); BUN Creatinine Ratio 14.7; Bilirubin Total 0.4 mg/dL (0.2-1.0); Calcium 8.5 mg/dL (8.5-10.1); Carbon Dioxide 28.2 mmol/L (21.0-32.0); Chloride 105 mmol/L (98-107); Estimated GFR (African America 55 (>=60); Estimated GFR (Non-African Ame 45 (>=60); Globulin 2.6 g/dL; Glucose 122 mg/dL (74-106); Potassium 3.3 mmol/L (3.5-5.1); Sodium 137 mmol/L (136-145); Total Protein 5.1 g/dL (6.4-8.2)
[2023-04-16 08:40] VITALS: BP 199/78
[2023-04-16] MEDS: DOCUSATE SODIUM 100 MG CAPSULE PO (08:40)
[2023-04-16] MEDS: POTASSIUM CHLORIDE 10 MEQ ER TABLET 40 MEQ PO (08:40)
[2023-04-16] MEDS: HYDROCHLOROTHIAZIDE 25 MG TABLET PO (08:40)
[2023-04-16] MEDS: LOSARTAN POTASSIUM 50 MG TABLET 100 MG PO (08:40)
[2023-04-16] MEDS: ENOXAPARIN SODIUM 40 MG/0.4 ML SYRINGE SUBQ (08:40)
[2023-04-16] MEDS: CEFTRIAXONE 1,000 MG in 0.9 % SODIUM CHLORIDE 50 ML 100 MG IV (08:41)
--- NOTE | 2023-04-16 09:32 | CM.NOTE ---
Spoke with [facility], pt is accepted for skilled therapy when medically discharged.
--- NOTE | 2023-04-16 10:30 | PT.DAILY ---
Physical Therapy Daily Note PT Daily Note/Assess Start: 04/15/23 11:11 Freq: Status: Active Protocol: Document 04/16/23 10:26 JOSHUA (Rec: 04/16/23 10:30 JOSHUA [id number]) Physical Therapy Daily Note/Assessment Time In/Time Out Time In 09:35 Time Out 09:50 Pain In Pain N/A Pain Out Pain N/A Subjective Subjective Pt's chair alarm going off as I pass room. Pt is standing in room. Pleasantly confused - hugs me thinking I'm relation. Agrees to amb in halls with therapist. Therapeutic Activity Time Therapeutic Activity Minutes (minutes) 8 Therapeutic Activity Units 1 Therapeutic Activity Treatment Chair Transfer Ability Standby Assistance Therapeutic Activity Comments Amb 80' without AD, CGA under L arm with assist for IV pole. Attempted to have pt stand at sink to perform standing ex but he is unable to follow these directions. Pt wishes to sit on bed at this time. Sits EOB to talk to therapist - unable to tell me his name and birthday but does know he is in [place], [place]. Pt wants to go back to BS chair. Amb around room 20' without Ad, CGA. Needs constant cuing to leave IV alone. Pt remains in BS chair upon completion with chair alarm set and Dr. Santiago present. Total Physical Therapy Time Total Therapy Minutes 8 Total Physical Therapy Units 1 Summary Daily Note Summary Fair standing dynamic balance with gait. Confusion limits activity.
--- NOTE | 2023-04-16 10:33 | CM.NOTE ---
Called pt's daughter for update regarding pt being accepted for skilled therapy at [facility], daughter in agreement to transport pt if he is discharged tomorrow.
--- NOTE | 2023-04-16 12:04 | CM.NOTE ---
Rounds made with Dr. Santiago. Remains confused. No plan for discharge.
--- NOTE | 2023-04-16 12:21 | CM.NOTE ---
Updates for PT sent to [facility].
--- NOTE | 2023-04-16 12:22 | PM.IMPN1 ---
Progress Note: A&P Assessment and Plan (1) Hypertensive emergency without congestive heart failure: Assessment and Plan: Started on PO Losartan/HCTZ. Hydralazine IV as needed. Monitor. BP is better but still not at goal. (2) Delirium due to medical condition without behavioral disturbance: Assessment and Plan: Unclear etiology. MRI - no acute pathology. Possibly due to PNA but typically would have noted improvement by now. possibly due to HTN urgency but that would have improved too and not persistent. Ativan as needed for anxiety. Increase Seroquel to 50 mg. Neurology consult appreciated. No new recommendations. (3) Altered mental status: Assessment and Plan: Unclear etiology. MRI - no acute pathology. Possibly due to PNA vs HTN emergency but typically would have noted improvement by now Ativan as needed for anxiety. Increase Seroquel to 50 mg. Neurology consult appreciated. No new recommendations. Qualifiers: Altered mental status type: delirium Qualified Code(s): R41.0 - Disorientation, unspecified (4) Bacterial pneumonia: Assessment and Plan: Doing well. Normal lung exam today. Pulled his IV. Switch to PO ceftin. (5) Generalized weakness: Assessment and Plan: PT/OT eval (6) Smoker: Assessment and Plan: Discussed smoking cessation. Nicotine patches while in the hospital Plan Persistent confusion, unclear etiology. Neurology consult placed. Continue to monitor. Internal Medicine - PN: Subj Subjective Interval history: Seen and examined. Doing well. No overnight events. Intermittent confusion. Exam Constitutional Vital Signs, click to edit/add: Last Vital Signs Temp 98.2 F 04/16/23 05:15 Pulse 87 04/16/23 05:15 Resp 14 04/16/23 05:15 BP 199/78 H 04/16/23 08:40 Pulse Ox 96 04/16/23 05:15 O2 Del Method Room Air 04/16/23 05:15 Documenting provider has reviewed patient's vital signs: yes Common normals: no apparent distress and oriented x3 General appearance: cooperative Respiratory Common normals: normal respiratory effort, no use of accessory muscles and clear to auscultation bilaterally Effort & inspection: able to speak in complete sentences Cardio Common normals: regular rate, S1 normal heart sound and S2 normal heart sound Rate: regular rate Heart sounds: S1 normal and S2 normal Neuro Common normals: oriented x3, moves all extremities and no focal motor deficits Speech: speech normal Gait (neuro): normal gait Psych Common normals: speech normal Appearance: grossly normal Speech: normal speech Thought process: confused Thought content: hallucination(s) Insight: limited Judgement: limited Internal Medicine - PN: Obj Da Labs Labs: Laboratory Results - last 24 hr 04/16/23 04:25 WBC 10.5 RBC 4.03 L Hgb 12.4 L Hct 36.5 L MCV 90.6 MCH 30.8 MCHC 34.0 RDW 14.0 Plt Count 181 MPV 9.9 Neut % (Auto) 79.9 H Lymph % (Auto) 8.1 L [place] % (Auto) 10.2 Eos % (Auto) 0.8 L Baso % (Auto) 0.4 Neut # (Auto) 8.4 H Lymph # (Auto) 0.9 L [place] # (Auto) 1.1 H Eos # (Auto) 0.1 Baso # (Auto) 0.0 Abs Immat Gran (auto) 0.06 H Imm/Tot Granulo (auto) 0.6 H Sodium 137 Potassium 3.3 L Chloride 105 Carbon Dioxide 28.2 Anion Gap 7.1 BUN 22.0 H Creatinine 1.50 H Est GFR ( Amer) 55 L Est GFR (Non-Af Amer) 45 L BUN/Creatinine Ratio 14.7 Glucose 122 H Calcium 8.5 Total Bilirubin 0.4 AST 13 L ALT 15 L Alkaline Phosphatase 66 Total Protein 5.1 L Albumin 2.5 L Globulin 2.6 Albumin/Globulin Ratio 1.0
[2023-04-16 13:34] VITALS: BP 173/67; PULSE 86; RESP 18; TEMP 37.4; O2SAT 95
--- NOTE | 2023-04-16 14:21 | CM.NOTE ---
HEN's completed for [facility].
[2023-04-16] MEDS: LORAZEPAM 0.5 MG TABLET 1 MG PO (15:07)
[2023-04-16] MEDS: HALOPERIDOL LACTATE 5 MG/ML VIAL IM (16:07)
[2023-04-16] MEDS: NICOTINE 21 MG PATCH TD (20:41)
[2023-04-16] MEDS: CEFUROXIME AXETIL 250 MG TABLET 500 MG PO (20:41)
[2023-04-16] MEDS: QUETIAPINE FUMARATE 25 MG TABLET 50 MG PO (20:44)
[2023-04-16 20:55] VITALS: BP 189/92; PULSE 75; RESP 18; TEMP 36.8; O2SAT 96
[2023-04-17] MEDS: HALOPERIDOL LACTATE 5 MG/ML VIAL IM (00:08)
[2023-04-17 05:14] VITALS: BP 168/81; PULSE 69; RESP 16; TEMP 36.9; O2SAT 95
[2023-04-17 08:00] VITALS: PULSE 58; RESP 16
[2023-04-17 08:27] VITALS: BP 166/77
[2023-04-17] MEDS: CEFUROXIME AXETIL 250 MG TABLET 500 MG PO (08:27)
[2023-04-17] MEDS: LOSARTAN POTASSIUM 50 MG TABLET 100 MG PO (08:27)
[2023-04-17] MEDS: OXYCODONE HCL 5 MG TABLET PO (08:29)
[2023-04-17] MEDS: ENOXAPARIN SODIUM 40 MG/0.4 ML SYRINGE SUBQ (08:30)
[2023-04-17] MEDS: LORAZEPAM 0.5 MG TABLET 1 MG PO (08:30)
[2023-04-17] MEDS: HYDROCHLOROTHIAZIDE 25 MG TABLET PO (08:30)
[2023-04-17 08:33] VITALS: BP 166/77; PULSE 60; RESP 16; TEMP 36.7; O2SAT 93
--- NOTE | 2023-04-17 09:02 | PM.DS1 ---
DS: Providers Provider Date of admission: 04/14/23 14:33 Primary care physician: Non-Staff Physician, Admitting clinician: Shaikh Jack Consults: 04/14/23 06:52 Occupational Therapy Eval and Treat Routine Reason for consultation: Ambulatory dysfunction/weakness Physical Therapy Eval and Treat Routine Reason for consultation: Ambulatory dysfunction/weakness 04/14/23 19:13 Consult to TeleNeurology Routine Reason for consultation: Unexplained delirium/confusion with psychosis. Attending physician on discharge: Mitzy Torre DS: Diagnosis Discharge Diagnosis (1) Hypertensive emergency without congestive heart failure: (2) Delirium due to medical condition without behavioral disturbance: (3) Altered mental status: Qualifiers: Altered mental status type: delirium Qualified Code(s): R41.0 - Disorientation, unspecified (4) Bacterial pneumonia: (5) Generalized weakness: (6) Smoker: DS: Summary Hospital Course Hospital Course: patient was admitted for delirium, hallucinations and altered mental status. Patient had CT and MRI of the brain which showed no acute pathology, neurology consultation should said no new recommendations mostly metabolic cause. Patient was found to have some pre-bronchial thickening on CTA of the chest and possible pneumonia patient was originally placed on Rocephin and transitioned to cefuroxime 500 mg twice a day, will continue this for seven more days. Also was found to have a hypertensive emergency, was given IV hydralazine and started on by mouth losartan at 100 mg daily and hydrochlorothiazide 25 mg daily. Blood pressures at the time of discharge were more controlled in the 150s over 70s. They will need to monitor blood pressure closely at the nursing facility. Patient is also a smoker and was provided nicotine patches of which we will continue at the half-way facility. After speaking with both sons and daughter at bedside at the time of discharge, dementia has seemed to be progressive but worse over the last month. Patient rarely sees a doctor and has never had any preventative medicine including any precancerous screenings in the past. Daughter says he probably would never want any of that. They're going to try rehab at the [facility] but may require transfer to long-term care facility at the [place] if possible in the future. Dementia could be the cause of his delirium and hallucinations, could be the change in blood pressure so hoping to control the blood pressure will see an improvement in some symptoms. Patient was also started on and will be discharged on Seroquel 50 mg at nighttime. They are to bring him to the Emergency Room with any worsening changes he will be discharged to the [facility] which is a half-way facility for inpatient rehab. Status at Discharge Functional status at discharge: uses cane/walker Overall status at discharge: patient is not back to baseline Time Spent with Patient Time attestation: Total time spent providing and/or coordinating discharge services: Time spent: greater than 30 minutes Exam Narrative Exam Narrative: General: Patient is alert, but not oriented to person, place and time with normal affect, proper hygiene Skin: no visible rashes, or ulcers Head: atraumatic, acephalic Eyes: PERRLA, no nystagmus present, conjunctiva clear, no scleral icterus Heart: Normal rate and rhythm, no murmurs/rubs/gallops Lungs: no audible wheezes, crackles and normal breath sounds all lung ochoa Abdomen: Normal audible bowel sounds, no distension, No palpable masses, no organomegaly, no rebound/guarding/ or rigidity Musculoskeletal: muscle atrophy noted, ROM is limited due to being in hospital bed, no swelling bilateral lower extremities Neuro: CN II-X grossly intact, patient is sleeping during much of the discussion and seems very tired today Constitutional Vital Signs, click to edit/add: Last Vital Signs Temp 98.0 F 04/17/23 08:33 Pulse 60 04/17/23 08:33 Resp 16 04/17/23 08:33 BP 166/77 H 04/17/23 08:33 Pulse Ox 93 L 04/17/23 08:33 O2 Del Method Room Air 04/17/23 08:33 Discharge Plan Discharge Disposition: Xfer Inpatient Rehab Fac Condition: Good Discharge Medications: New losartan 50 mg Tablet 100 mg PO QD 30 Days Qty: 30 0RF quetiapine 25 mg Tablet 50 mg PO QHS 30 Days Qty: 60 0RF acetaminophen 325 mg Tablet 650 mg PO Q4H PRN (Reason: Pain 1-4) 7 Days Qty: 20 0RF cefuroxime axetil 250 mg Tablet 500 mg PO BID 7 Days Qty: 28 0RF hydrochlorothiazide 25 mg Tablet 25 mg PO QD 30 Days Qty: 30 0RF nicotine [Nicoderm CQ] 21 mg/24 hr patch 24 hour 1 patch transdermal Q24H Qty: 28 0RF Continued ascorbic acid (vitamin C) 500 mg capsule 500 mg PO QDAY zinc sulfate 50 mg zinc (220 mg) tablet 50 mg PO DAILY Forms: Portal Instructions Follow Up Appointments: PCP once discharged.
[2023-04-17] MEDS: IPRATROPIUM/ALBUTEROL SULFATE 3 ML AMPUL.NEB IH (11:53)
[2023-04-17 11:54] VITALS: PULSE 59; O2SAT 95
[2023-04-17 12:00] LABS: Basophils Absolute Auto 0.1 10^3/uL (0.0-0.1); Basophils Percent Auto 0.5 % (0.2-2.0); Eosinophils Absolute Auto 0.3 10^3/uL (0.0-0.7); Eosinophils Percent Auto 3.4 % (0.9-7.0); Hematocrit 37.6 % (42.0-54.0); Hemoglobin 12.5 g/dL (14.0-18.0); Immature Granulocytes Abs Auto 0.06 10^3/uL (0.00-0.03); Immature Granulocytes Pct Auto 0.6 % (0.0-0.5); Lymphocytes Absolute Auto 1.2 10^3/uL (1.2-3.8); Lymphocytes Percent Auto 12.4 % (20.5-60.0); Mean Corpuscular HGB Conc 33.2 g/dL (29.9-35.2); Mean Corpuscular Hemoglobin 30.3 pg (25.9-34.0); Mean Corpuscular Volume 91.3 fL (80.0-94.0); Mean Platelet Volume 9.8 fL (9.5-13.5); Monocytes Absolute Auto 0.9 10^3/uL (0.3-0.8); Monocytes Percent Auto 9.7 % (1.7-12.0); Neutrophils Absolute Auto 6.8 10^3/uL (1.4-6.5); Neutrophils Percent Auto 73.4 % (43.0-75.0); Platelet Count 175 10^3/uL (150-450); Red Blood Count 4.12 10^6/uL (4.70-6.10); White Blood Count 9.3 10^3/uL (4.0-11.0)
[2023-04-17 12:27] VITALS: BP 151/73
[2023-04-17 13:57] LABS: Alanine Aminotransferase 17 U/L (16-63); Albumin Globulin Ratio 0.9; Albumin Level 2.4 g/dL (3.4-5.0); Alkaline Phosphatase 65 U/L (46-116); Anion Gap 11.1; Aspartate Amino Transferase 23 U/L (15-37); BUN Creatinine Ratio 14.2; Bilirubin Total 0.5 mg/dL (0.2-1.0); Calcium 8.2 mg/dL (8.5-10.1); Carbon Dioxide 28.8 mmol/L (21.0-32.0); Chloride 104 mmol/L (98-107); Estimated GFR (African America >60 (>=60); Estimated GFR (Non-African Ame >60 (>=60); Globulin 2.7 g/dL; Glucose 94 mg/dL (74-106); Potassium 3.9 mmol/L (3.5-5.1); Sodium 140 mmol/L (136-145); Total Protein 5.1 g/dL (6.4-8.2)
== END 2023-04-17 14:55 | DRG 304 ==
LOC: ER 04-14 04:52 → MS 04-14 06:29
PROVIDERS: Admitting Provider Internal Medicine; Emergency Provider Emergency Medicine; Visit Provider Family Medicine
DX: I16.1 Hypertensive emergency (principal); J15.9 Unspecified bacterial pneumonia; F05 Delirium due to known physiological condition; I10 Essential (primary) hypertension; F03.90 Unspecified dementia, unspecified severity, without behavioral disturbance, psychotic disturbance, mood disturbance, and anxiety; F17.200 Nicotine dependence, unspecified, uncomplicated; Z83.3 Family history of diabetes mellitus; Z82.49 Family history of ischemic heart disease and other diseases of the circulatory system
CPT/HCPCS: 36415; 36600; 70551; 71046; 71275; 80053; 81001; 82140; 82805; 83605; 84484; 85025; 85378; 93005; 94640; 94761; 96361; 96365; 96366; 96372; 96375; 96376; 97112; 97162; 97165; 97530; 99285; Q3014; Q9967